=== PATIENT | female | born 1985 | race Two or more races ===

== ENCOUNTER 2016-05-28 19:20 | Emergency (ER) | payer OTHER ==
[~2016-05-28 19:20] MED LIST: IBUPROFEN800 M1 PO; PRENATAL VITAM1 EAC5 PO
[2016-05-28] MEDS ORDERED: [UNRECOGNIZED DRUG - REMARK] (20:12)
== END 2016-05-28 21:34 ==
LOC: EDMED 19:20
DX: S39.012A Strain of muscle, fascia and tendon of lower back, initial encounter (principal); V49.40XA Driver injured in collision with unspecified motor vehicles in traffic accident, initial encounter; Y92.410 Unspecified street and highway as the place of occurrence of the external cause